=== PATIENT | female | born 1975 | race Caucasian/White ===

== ENCOUNTER 2024-05-12 00:05 | Emergency (ER) | payer MEDICARE, MEDICAID ==
[~2024-05-12] VITALS: Ht 162.6 cm; Wt 77.3 kg
[2024-05-12 00:08] VITALS: TEMP 97.8
[2024-05-12] MEDS ORDERED: ENOX40SY7 SUBCUT (01:40)
[2024-05-12] MEDS: HYDROcodone/acetaminophen 5mg/325mg tablet PO ONE (01:51)
[2024-05-12] MEDS: ondansetron 4mg rapidly disintigrating tab PO ONE (01:51)
[2024-05-12] MEDS: enoxaparin 100mg/ml syringe SUBCUT ONE (01:54)
[2024-05-12 02:22] VITALS: BP 126/90; PULSE 94; RESP 16; O2SAT 97
[2024-05-12] MEDS ORDERED: HYDR-3965 PO ×2 (15:29→15:34)
== END 2024-05-12 02:34 | disposition home or self-care (01) ==
LOC: ER 00:07
DX: I82.401 Acute embolism and thrombosis of unspecified deep veins of right lower extremity (principal)
CPT/HCPCS: 93971; 96372; 99285; J1650; 99284

== ENCOUNTER 2024-05-12 15:08 | Emergency (ER) | payer MEDICARE, MEDICAID ==
[~2024-05-12] VITALS: Ht 162.6 cm; Wt 74.2 kg
[~2024-05-12 15:08] MED LIST: ENOX40SY7 SUBCUT
[2024-05-12 15:23] VITALS: BP 138/103; PULSE 105; RESP 18; TEMP 97.8; O2SAT 96
[2024-05-12] MEDS ORDERED: HYDR-3965 PO ×2 (15:29→15:34)
[2024-05-12] MEDS: enoxaparin 100mg/ml syringe SUBCUT ONE (15:38)
[2024-05-12] MEDS: HYDROcodone/acetaminophen 10/325mg tab PO ONE (15:38)
== END 2024-05-12 15:44 | disposition home or self-care (01) ==
LOC: ER 15:09
DX: I82.4Z2 Acute embolism and thrombosis of unspecified deep veins of left distal lower extremity (principal)
CPT/HCPCS: 96372; 99283; J1650